=== PATIENT | male | born 1980 | race Caucasian/White ===

== ENCOUNTER 2021-06-18 17:13 | Emergency (ER) | payer OTHER ==
[~2021-06-18] VITALS: Ht 172.7 cm; Wt 89.8 kg
[2021-06-18] MEDS ORDERED: CIPROFLOXACIN500 M1 PO (17:35)
[2021-06-18] MEDS ORDERED: IBUPROFEN 800800 MG PO (17:35)
[2021-06-18] MEDS ORDERED: PREDNISONE 20 M20 M1 PO (17:35)
[2021-06-18 17:43] VITALS: BP 146/88
== END 2021-06-18 17:44 | disposition home or self-care (01) ==
LOC: M.ERS 17:13
DX: S39.011A Strain of muscle, fascia and tendon of abdomen, initial encounter (principal); X58.XXXA Exposure to other specified factors, initial encounter; Y93.89 Activity, other specified; Y92.89 Other specified places as the place of occurrence of the external cause; Y99.8 Other external cause status